=== PATIENT | female | born 1960 | race Caucasian/White ===

== ENCOUNTER 2023-03-30 15:07 | Inpatient (IN) | payer MEDICARE, OTHER ==
[~2023-03-30] VITALS: Ht 162.6 cm; Wt 89.5 kg
--- NOTE | 2023-03-30 18:41 | NUR ---
MD AWARE OF PT VITALS.
[2023-03-30] MEDS ORDERED: normal saline 1000ml 1,000 ML IV ONE (18:55)
[2023-03-30] MEDS ORDERED: normal saline 1000ML IV soln IVB ONE (18:55)
[2023-03-30] MEDS ORDERED: nitroGLYCERIN 0.4mg/hour patch TD ONE (18:55)
[2023-03-30] MEDS ORDERED: aspirin 81mg tab.chew PO ONE (18:55)
[2023-03-30] MEDS ORDERED: LORazepam 2 mg/ml vial IV ONE (18:55)
[2023-03-30 19:01] LABS: BASOPHILS # (AUTO) 0.1 X10'3 (0-0.2); BASOPHILS % (AUTO) 1.1 % (0-1); EOSINOPHILS % (AUTO) 0.1 % (0-6); HEMATOCRIT 45.4 % (35.0-45.0); HEMOGLOBIN 15.6 g/dl (12.0-16.0); LYMPHOCYTES # (AUTO) 1.3 X10'3 (1.1-4.8); MEAN CORPUSCULAR HGB CONC 34.4 g/dL (33.0-36.5); MEAN CORPUSCULAR VOLUME 95.8 FL (78-98); MEAN PLATELET VOLUME 7.5 FL (7.4-10.4); MONOCYTES # (AUTO) 0.6 X10'3 (0-0.9); MONOCYTES % (AUTO) 5.1 % (2-12); NEUTROPHILS % (AUTO) 82.7 % (42-75); PLATELET COUNT 236 X10'3 (140-440); RED BLOOD COUNT 4.74 X10'6 (4.20-5.60); RED CELL DISTRIBUTION WIDTH 13.5 % (11.5-14.5); WHITE BLOOD COUNT 12.1 X10'3 (4.5-11.0)
[2023-03-30 19:12] LABS: APTT 26 SECONDS (22-32); INR 1.1 INR; PROTHROMBIN TIME 11.3 SECONDS (9.0-12.0)
[2023-03-30 19:14] LABS: BILIRUBIN,URINE NEGATIVE (Neg); CLARITY,URINE CLEAR (Clear); COLOR,URINE YELLOW (Yellow); GLUCOSE, URINE NEGATIVE (Neg); KETONES,URINE NEGATIVE (Neg); LEUKOCYTE ESTERASE ,URINE NEGATIVE (Neg); NITRITES, URINE NEGATIVE (Neg); OCCULT BLOOD,URINE MODERATE (Neg); PH,URINE 7.5 (4.8-8.0); PROTEIN,URINE 30 mg/dl (Neg); UROBILINOGEN,URINE 0.2 E.U/dL (0.2-1.0)
[2023-03-30 19:19] LABS: UA COLLECTION TYPE CLN CATCH MIDSTREAM
[2023-03-30 19:21] LABS: GLUCOSE 143 MG/DL (70-104); SODIUM 138 MMOL/L (135-145)
[2023-03-30 19:22] LABS: ALANINE AMINOTRANSFERASE 147 U/L (12-78); ALBUMIN 4.4 G/DL (3.4-5.0); ALKALINE PHOSPHATASE 107 IU/L (46-116); ANION GAP 14 (8-16); ASPARTATE AMINO TRANSFERASE 182 U/L (10-37); BILIRUBIN,TOTAL 1.2 MG/DL (0.1-1.0); BLOOD UREA NITROGEN 9 MG/DL (7-18); CHLORIDE 98 MMOL/L (99-107); CREATININE 0.82 MG/DL (0.40-0.90); MAGNESIUM 1.6 MG/DL (1.5-2.4); PRO BRAIN NATRIURETIC PEPTIDE 756 PG/ML (0-125); TOTAL CARBON DIOXIDE 25.8 MMOL/L (24-32); TOTAL PROTEIN 8.7 G/DL (6.4-8.2); eCRCL 63 ML/MIN; eGFR 71 ML/MIN
[2023-03-30 19:25] LABS: BACTERIA,URINE FEW /HPF (Neg); MUCUS STRANDS NONE SEEN /LPF (Neg); SQUAMOUS EPITHELIAL CELL,UR FEW /LPF (FEW); WBC,URINE 0-4 /HPF (0-4)
[2023-03-30 19:26] LABS: TRANSITIONAL EPI CELLS,URINE FEW /HPF
[2023-03-30 19:33] LABS: CALCIUM 9.9 MG/DL (8.5-10.1)
[2023-03-30 19:52] LABS: POTASSIUM 2.7 MMOL/L (3.5-5.1)
[2023-03-30] MEDS ORDERED: heparin 10,000 units/1 ML INJ IV ONE (20:00)
[2023-03-30] MEDS ORDERED: heparin 25,000 UNIT/250ml bag 250 ML IV PRN (20:00)
[2023-03-30] MEDS ORDERED: potassium Cl 20 mEq SR tablet PO ONE (20:00)
[2023-03-30] MEDS ORDERED: magnesium 2GM in 50ml NS 50 ML IV ONE (20:00)
[2023-03-30 20:03] LABS: C-REACTIVE PROTEIN 1.97 MG/DL (0.0-0.5); THYROID STIMULATING HORMONE 0.63 ulU/ml (0.34-4.50)
[2023-03-30] MEDS ORDERED: potassium Cl 40 mEq/0.45% sodium chloride IV soln 520ml IV ONE (20:05)
[2023-03-30 20:09] LABS: ETHANOL < 10 MG/DL (<10)
[2023-03-30] MEDS ORDERED: Potassium Cl 40 MEQ in sodium chloride 0.45% 500 ML IV ONE (20:10)
[2023-03-30 20:20] LABS: BILIRUBIN,URINE NEGATIVE (Neg); COLOR,URINE YELLOW (Yellow); GLUCOSE, URINE NEGATIVE (Neg); KETONES,URINE 40 mg/dl (Neg); LEUKOCYTE ESTERASE ,URINE NEGATIVE (Neg); NITRITES, URINE NEGATIVE (Neg); OCCULT BLOOD,URINE MODERATE (Neg); PH,URINE 7.5 (4.8-8.0); PROTEIN,URINE >=300 mg/dl (Neg); UROBILINOGEN,URINE 0.2 E.U/dL (0.2-1.0)
[2023-03-30 20:26] LABS: CLARITY,URINE SLIGHTLY CLOUDY (Clear); UA COLLECTION TYPE CLN CATCH MIDSTREAM
[2023-03-30 20:36] LABS: BACTERIA,URINE FEW /HPF (Neg); RBC,URINE 20-50 /HPF (0-2); WBC,URINE 0-4 /HPF (0-4)
[2023-03-30 20:37] LABS: SQUAMOUS EPITHELIAL CELL,UR FEW /LPF (FEW)
[2023-03-30 20:38] LABS: FINE GRANULAR CAST 0-3 /LPF (NEGATIVE); TRANSITIONAL EPI CELLS,URINE FEW /HPF; URINE AMPHETAMINE SCREEN NEGATIVE (Neg); URINE BARBITUATE SCREEN NEGATIVE (Neg); URINE BENZODIAZEPINES SCREEN NEGATIVE (Neg); URINE CANNABINOID SCREEN NEGATIVE (Neg); URINE COCAINE SCREEN NEGATIVE (Neg); URINE METHADONE SCREEN NEGATIVE (Neg); URINE OPIATE SCREEN NEGATIVE (Neg); URINE PHENCYCLIDINE SCREEN NEGATIVE (Neg)
[2023-03-30] MEDS ORDERED: magnesium 2GM in 50ml NS 50 ML IV PRN (20:50)
[2023-03-30] MEDS ORDERED: ondansetron/PF 4mg/2ml inj IV PRN (20:50)
[2023-03-30] MEDS ORDERED: magnesium 4gm in 100ml NS 100 ML IV PRN (20:50)
[2023-03-30] MEDS ORDERED: PERFLUTREN PROTEIN-A MICROSPHR (Optison) 0.22 MG/ML 3ML VIAL IV PRN (20:50)
[2023-03-30] MEDS ORDERED: magnesium Cl slow-release 64mg tablet PO PRN (20:50)
[2023-03-30] MEDS ORDERED: acetaminophen 325mg tablet PO PRN (20:50)
[2023-03-30] MEDS ORDERED: potassium Cl 20 mEq SR tablet PO PRN ×2 (20:50)
[2023-03-30] MEDS: metoprolol tartrate 1mg/ml inj IV SCH ×3 (20:51→21:44)
[2023-03-30] MEDS ORDERED: LORazepam 2 mg/ml vial IV STA (20:55)
[2023-03-30] MEDS ORDERED: LORazepam 2 mg/ml vial IV PRN (20:55)
[2023-03-30] MEDS ORDERED: heparin 10,000 units/1 ML INJ IV PRN (21:45)
[2023-03-30] MEDS: buprenorphine/naloxone 8MG-2MG SUBlingual film SL SCH (22:02)
[2023-03-30 22:58] LABS: ABG BASE EXCESS 1.6 mmol/L (-2.0-2.0); ABG HCO3 21.7 mmol/L (22.0-26.0); ABG OXYGEN SATURATION 97.6 % (94-97); ABG PCO2 (T) 24.5 mmHg (32.0-45.0); ABG PH (T) 7.566 (7.350-7.450); ABG PO2 (T) 87.8 mmHg (75.0-100.0); FCOHb 0.3 % (0.0-3.9); FHHb 2.4 % (0.0-5.0); FMetHb 0.2 % (0.0-1.5); FO2Hb 97.1 % (94-97); PATIENT TEMPERATURE 37.3; TOTAL HEMOGLOBIN 15.3 G/dl (12.0-16.0)
[2023-03-30] MEDS ORDERED: thiamine 100mg/ml 2ml inj. IV ONE (23:20)
[2023-03-30] MEDS: LORazepam 2 mg/ml vial IV SCH (23:55)
[2023-03-30] MEDS ORDERED: folic acid 1mg/0.2ml inj IV ONE (23:55)
[2023-03-31] VITALS (23 sets, daily range): BP systolic 68–148; BP diastolic 42–120; PULSE 53–76; RESP 14–21; O2SAT 95–100
--- NOTE | 2023-03-31 00:25 | NUR ---
Pt to floor.
[2023-03-31] MEDS: dexmedetomidine inj. 400 MCG in normal saline 100ml IV soln 96 ML IV SCH ×2 (00:40→07:41)
[2023-03-31] MEDS: normal saline 1000ml 1,000 ML IV SCH ×2 (00:40→14:11)
[2023-03-31] MEDS: potassium Cl 40MEQ/1/2NS 520ml 520 ML IV PRN (00:51)
[2023-03-31] MEDS: LORazepam 2 mg/ml vial IV SCH (00:55)
[2023-03-31] MEDS ORDERED: LORazepam 2 mg/ml vial IV PRN (01:00)
--- NOTE | 2023-03-31 01:03 | NUR ---
Dr. Malhotra notified of low BP. I took off her NTG patch. He ordered 1L NS bolus and said after that start peripheral Norepi if needed.
[2023-03-31] MEDS ORDERED: normal saline 1000ml 1,000 ML IV ONE (01:05)
[2023-03-31 02:12] LABS: BASOPHILS % (AUTO) 0.2 % (0-1); EOSINOPHILS % (AUTO) 0 % (0-6); HEMATOCRIT 36.6 % (35.0-45.0); HEMOGLOBIN 12.4 g/dl (12.0-16.0); LYMPHOCYTES # (AUTO) 1.2 X10'3 (1.1-4.8); LYMPHOCYTES % (AUTO) 9.2 % (21-51); MEAN CORPUSCULAR HEMOGLOBIN 32.4 PG (27.0-31.0); MEAN CORPUSCULAR HGB CONC 33.7 g/dL (33.0-36.5); MEAN CORPUSCULAR VOLUME 96.1 FL (78-98); MEAN PLATELET VOLUME 7.9 FL (7.4-10.4); MONOCYTES # (AUTO) 0.8 X10'3 (0-0.9); MONOCYTES % (AUTO) 5.9 % (2-12); NEUTROPHILS # (AUTO) 10.9 X10'3 (1.8-7.7); NEUTROPHILS % (AUTO) 84.7 % (42-75); PLATELET COUNT 196 X10'3 (140-440); RED BLOOD COUNT 3.81 X10'6 (4.20-5.60); RED CELL DISTRIBUTION WIDTH 13.4 % (11.5-14.5); WHITE BLOOD COUNT 12.9 X10'3 (4.5-11.0)
[2023-03-31 02:18] LABS: APTT 59 SECONDS (22-32)
[2023-03-31 02:19] LABS: ALANINE AMINOTRANSFERASE 115 U/L (12-78); ALBUMIN 2.9 G/DL (3.4-5.0); ALBUMIN/GLOBULIN RATIO 0.9 (1.1-1.5); ALKALINE PHOSPHATASE 71 IU/L (46-116); ANION GAP 6 (8-16); ASPARTATE AMINO TRANSFERASE 144 U/L (10-37); BILIRUBIN,TOTAL 0.8 MG/DL (0.1-1.0); BLOOD UREA NITROGEN 8 MG/DL (7-18); BUN/CREATININE RATIO 9.2 (10.0-20.0); CALCIUM 7.7 MG/DL (8.5-10.1); CHLORIDE 105 MMOL/L (99-107); CREATININE 0.87 MG/DL (0.40-0.90); GLUCOSE 165 MG/DL (70-104); MAGNESIUM 1.9 MG/DL (1.5-2.4); POTASSIUM 3.3 MMOL/L (3.5-5.1); SODIUM 140 MMOL/L (135-145); TOTAL CARBON DIOXIDE 29.5 MMOL/L (24-32); TOTAL PROTEIN 6.2 G/DL (6.4-8.2); eCRCL 59 ML/MIN; eGFR 66 ML/MIN
[2023-03-31] MEDS ORDERED: NORepinephrine 8mg/ 250ml NS 250 ML IV SCH (02:20)
[2023-03-31] MEDS: folic acid 1mg/0.2ml inj IV SCH (07:35)
[2023-03-31] MEDS: pantoprazole 40MG/NS 100ML BAG 100 ML IV SCH (07:36)
[2023-03-31] MEDS: thiamine 100mg/ml 2ml inj. IV SCH (07:38)
[2023-03-31] MEDS ORDERED: buprenorphine/naloxone 8MG-2MG SUBlingual film SL SCH (08:00)
[2023-03-31] MEDS: K and/or MAG REPLACEMENT MC SCH ×2 (08:00→20:00)
[2023-03-31] MEDS: buprenorphine/naloxone 8MG-2MG SUBlingual film SL SCH ×2 (08:00→19:49)
[2023-03-31] MEDS: multivitamins, therapeutics tablet PO SCH (09:04)
[2023-03-31] MEDS: chlordiazePOXIDE 25mg capsule PO SCH ×2 (11:32→19:49)
[2023-03-31] MEDS ORDERED: heparin 1,000unit/ml 10ml vial 10 ML ONE ×2 (16:01→17:25)
[2023-03-31] MEDS ORDERED: fentaNYL/PF 50MCG/1 ML 2ML syringe ONE (16:02)
[2023-03-31] MEDS ORDERED: midazolam 1 mg/ML 2ml injection ONE (16:02)
[2023-03-31] MEDS ORDERED: IBUP-1986 PO (16:40)
[2023-03-31] MEDS ORDERED: BUPR-317 PO (16:40)
[2023-03-31] MEDS ORDERED: BUPR1FIL3 SL (16:40)
[2023-03-31] MEDS ORDERED: DULO40CA2 PO (16:40)
[2023-03-31] MEDS ORDERED: MULT-1141 PO (16:40)
--- NOTE | 2023-03-31 17:00 | NUR ---
Patient taken to Network Intelligence Analyst for procedure
[2023-03-31] MEDS ORDERED: verapamil 2.5 mg/ml inj IV ONE (17:17)
[2023-03-31] MEDS ORDERED: LIDOcaine 1% 30ml preserv. free vial ONE (17:17)
[2023-03-31] MEDS ORDERED: iohexol 350MG/ML 100ml bottle IV ONE ×2 (17:17→17:21)
[2023-03-31] MEDS ORDERED: clopidogrel 300mg tablet ONE (17:33)
--- NOTE | 2023-03-31 17:35 | NUR ---
PATIENT TRANSFERRED TO PROFILE SHAPER OPERATOR Addendum: 03/31/23 at 1736 by Zelda Dobbins RN Amended: Links added.
[2023-03-31] MEDS ORDERED: proCHLORperazine 10 MG/2 ml inj IV PRN (18:15)
[2023-03-31] MEDS ORDERED: HYDROcodone/acetaminophen 5mg/325mg tablet PO PRN (18:15)
[2023-03-31] MEDS ORDERED: ondansetron/PF 4mg/2ml inj IV PRN (18:15)
[2023-03-31] MEDS ORDERED: furosemide 40mg/4ml inj IV ONE (18:20)
[2023-04-01] VITALS (19 sets, daily range): BP systolic 96–140; BP diastolic 64–96; PULSE 58–92; RESP 11–25; TEMP 97.7; O2SAT 94–100
[2023-04-01] MEDS: normal saline 1000ml 1,000 ML IV SCH (02:21)
[2023-04-01] MEDS: chlordiazePOXIDE 25mg capsule PO SCH ×3 (03:35→21:19)
[2023-04-01 06:02] LABS: BASOPHILS # (AUTO) 0.1 X10'3 (0-0.2); BASOPHILS % (AUTO) 0.7 % (0-1); EOSINOPHILS # (AUTO) 0.1 X10'3 (0-0.9); EOSINOPHILS % (AUTO) 1.4 % (0-6); MEAN CORPUSCULAR HEMOGLOBIN 33.2 PG (27.0-31.0); MEAN CORPUSCULAR HGB CONC 34.2 g/dL (33.0-36.5); MONOCYTES # (AUTO) 0.7 X10'3 (0-0.9); MONOCYTES % (AUTO) 8.4 % (2-12); NEUTROPHILS # (AUTO) 5.4 X10'3 (1.8-7.7); NEUTROPHILS % (AUTO) 65.5 % (42-75); PLATELET COUNT 179 X10'3 (140-440); RED BLOOD COUNT 3.92 X10'6 (4.20-5.60); WHITE BLOOD COUNT 8.2 X10'3 (4.5-11.0)
[2023-04-01 06:16] LABS: ALANINE AMINOTRANSFERASE 98 U/L (12-78); ALBUMIN 3.1 G/DL (3.4-5.0); ALBUMIN/GLOBULIN RATIO 0.9 (1.1-1.5); ALKALINE PHOSPHATASE 64 IU/L (46-116); ANION GAP 5 (8-16); ASPARTATE AMINO TRANSFERASE 91 U/L (10-37); BILIRUBIN,TOTAL 0.5 MG/DL (0.1-1.0); BLOOD UREA NITROGEN 12 MG/DL (7-18); BUN/CREATININE RATIO 12.6 (10.0-20.0); CALCIUM 8.8 MG/DL (8.5-10.1); CHLORIDE 108 MMOL/L (99-107); CREATININE 0.95 MG/DL (0.40-0.90); GLUCOSE 115 MG/DL (70-104); MAGNESIUM 2.2 MG/DL (1.5-2.4); SODIUM 141 MMOL/L (135-145); TOTAL CARBON DIOXIDE 28.3 MMOL/L (24-32); TOTAL PROTEIN 6.4 G/DL (6.4-8.2); eCRCL 54 ML/MIN; eGFR 60 ML/MIN
[2023-04-01] MEDS ORDERED: multivitamins, therapeutics tablet PO SCH (08:00)
[2023-04-01] MEDS ORDERED: furosemide 20MG tablet PO SCH (08:00)
[2023-04-01] MEDS: thiamine 100mg/ml 2ml inj. IV SCH (08:28)
[2023-04-01] MEDS: folic acid 1mg/0.2ml inj IV SCH (08:28)
[2023-04-01] MEDS: buprenorphine/naloxone 8MG-2MG SUBlingual film SL SCH ×2 (08:28→21:20)
[2023-04-01] MEDS: clopidogrel 75mg tablet PO SCH (08:28)
[2023-04-01] MEDS: multivitamins, therapeutics tablet PO SCH (08:28)
[2023-04-01] MEDS: buPROPion SR 150mg tablet PO SCH (08:28)
[2023-04-01] MEDS: potassium Cl 40MEQ/1/2NS 520ml 520 ML IV PRN (08:44)
[2023-04-01] MEDS: pantoprazole 40MG/NS 100ML BAG 100 ML IV SCH (08:44)
[2023-04-01] MEDS: K and/or MAG REPLACEMENT MC SCH ×2 (08:52→20:00)
[2023-04-01] MEDS: duloxetine 20mg capsule.DR PO SCH (10:44)
[2023-04-01] MEDS ORDERED: diphenhydrAMINE 50 mg/ml inj IV ONE (12:00)
[2023-04-01] MEDS ORDERED: hydrOXYzine 25 MG tablet PO PRN (12:00)
[2023-04-01] MEDS: atorvastatin 10mg tablet PO SCH (12:15)
[2023-04-01] MEDS: aspirin 81mg, enteric-coated 1 TAB TABLET.DR PO SCH (12:15)
[2023-04-01] MEDS: triamcinolone acet 0.1% cream 15gm TP SCH (12:22)
[2023-04-01] MEDS: metoprolol tartrate 25mg tablet PO SCH ×2 (15:12→21:20)
--- NOTE | 2023-04-01 19:00 | NUR ---
Patient in room PCU 3016. I have received report from [facility] and had the opportunity to ask questions and assume patient care.
--- NOTE | 2023-04-01 19:10 | NUR ---
Pt awake, alert, sitting up eating dinner; VSS, offers no complaints; pt transferred to PCU at 1905, room 3016B, in wheelchair after giving report to TONI Webb; belongings w/patient; pt settled in bed w/call light w/in reach.
[2023-04-01] MEDS: HYDROcodone/acetaminophen 10/325mg tab PO PRN (21:20)
[2023-04-02] VITALS (7 sets, daily range): BP systolic 87–110; BP diastolic 56–75; PULSE 50–60; RESP 10–18; TEMP 97.6–97.9; O2SAT 93–98
--- NOTE | 2023-04-02 06:15 | NUR ---
Problems reprioritized. Patient report given, questions answered & plan of care reviewed with Mireille MUÑOZ.
[2023-04-02 06:44] LABS: BASOPHILS # (AUTO) 0.1 X10'3 (0-0.2); BASOPHILS % (AUTO) 0.6 % (0-1); EOSINOPHILS # (AUTO) 0.2 X10'3 (0-0.9); HEMATOCRIT 36.8 % (35.0-45.0); HEMOGLOBIN 12.3 g/dl (12.0-16.0); LYMPHOCYTES # (AUTO) 2.7 X10'3 (1.1-4.8); LYMPHOCYTES % (AUTO) 28.8 % (21-51); MEAN CORPUSCULAR HEMOGLOBIN 32.9 PG (27.0-31.0); MEAN CORPUSCULAR HGB CONC 33.3 g/dL (33.0-36.5); MEAN CORPUSCULAR VOLUME 98.8 FL (78-98); MEAN PLATELET VOLUME 8.1 FL (7.4-10.4); MONOCYTES # (AUTO) 0.9 X10'3 (0-0.9); MONOCYTES % (AUTO) 9.8 % (2-12); NEUTROPHILS # (AUTO) 5.5 X10'3 (1.8-7.7); NEUTROPHILS % (AUTO) 58.8 % (42-75); PLATELET COUNT 204 X10'3 (140-440); RED BLOOD COUNT 3.72 X10'6 (4.20-5.60); RED CELL DISTRIBUTION WIDTH 14.2 % (11.5-14.5); WHITE BLOOD COUNT 9.4 X10'3 (4.5-11.0)
[2023-04-02] MEDS: aspirin 81mg, enteric-coated 1 TAB TABLET.DR PO SCH (07:00)
[2023-04-02] MEDS: multivitamins, therapeutics tablet PO SCH (07:00)
[2023-04-02] MEDS: chlordiazePOXIDE 25mg capsule PO SCH ×2 (07:00→21:02)
[2023-04-02] MEDS: clopidogrel 75mg tablet PO SCH (07:00)
[2023-04-02] MEDS: duloxetine 20mg capsule.DR PO SCH (07:00)
[2023-04-02] MEDS: thiamine 100mg/ml 2ml inj. IV SCH (07:00)
[2023-04-02] MEDS: atorvastatin 10mg tablet PO SCH (07:00)
[2023-04-02] MEDS: HYDROcodone/acetaminophen 10/325mg tab PO PRN ×3 (07:00→19:34)
[2023-04-02] MEDS: buprenorphine/naloxone 8MG-2MG SUBlingual film SL SCH ×2 (07:01→21:02)
[2023-04-02] MEDS: buPROPion SR 150mg tablet PO SCH (07:01)
[2023-04-02 07:13] LABS: ALANINE AMINOTRANSFERASE 79 U/L (12-78); ALBUMIN 3.2 G/DL (3.4-5.0); ALKALINE PHOSPHATASE 63 IU/L (46-116); ANION GAP 8 (8-16); ASPARTATE AMINO TRANSFERASE 63 U/L (10-37); BILIRUBIN,TOTAL 0.5 MG/DL (0.1-1.0); BLOOD UREA NITROGEN 22 MG/DL (7-18); BUN/CREATININE RATIO 18.2 (10.0-20.0); CALCIUM 8.7 MG/DL (8.5-10.1); CHLORIDE 106 MMOL/L (99-107); CREATININE 1.21 MG/DL (0.40-0.90); GLUCOSE 94 MG/DL (70-104); POTASSIUM 3.9 MMOL/L (3.5-5.1); SODIUM 138 MMOL/L (135-145); TOTAL CARBON DIOXIDE 23.7 MMOL/L (24-32); TOTAL PROTEIN 6.4 G/DL (6.4-8.2); eCRCL 43 ML/MIN; eGFR 45 ML/MIN
[2023-04-02] MEDS: metoprolol tartrate 25mg tablet PO SCH ×3 (08:00→20:00)
[2023-04-02] MEDS: triamcinolone acet 0.1% cream 15gm TP SCH ×2 (08:00→20:00)
[2023-04-02] MEDS: K and/or MAG REPLACEMENT MC SCH ×2 (08:00→20:00)
[2023-04-02] MEDS: folic acid 1mg/0.2ml inj IV SCH (09:17)
[2023-04-02] MEDS: pantoprazole 40MG/NS 100ML BAG 100 ML IV SCH (09:18)
--- NOTE | 2023-04-02 12:33 | NUR ---
sent to [facility]: [id number]: pt everyday smoker. order for nicotine patch please? thank you. Mireille MUÑOZ [id number]
[2023-04-02] MEDS: nicotine 14mg patch - 24hr TD SCH (13:51)
[2023-04-02] MEDS: LIDOcaine 5% patch TP SCH (13:51)
[2023-04-03 02:00] VITALS: BP 83/53; PULSE 59; RESP 19; TEMP 97.8; O2SAT 100
[2023-04-03] MEDS: metoprolol tartrate 25mg tablet PO SCH ×3 (02:00→14:00)
[2023-04-03] MEDS: HYDROcodone/acetaminophen 10/325mg tab PO PRN ×2 (02:06→13:48)
[2023-04-03 06:00] VITALS: BP 95/61; PULSE 55; RESP 16; TEMP 97.8; O2SAT 96
--- NOTE | 2023-04-03 07:05 | NUR ---
This RN has has reviewed and agrees w/the BLADE BENDER FURNACE TENDER's physical assessment of this patient.
[2023-04-03 07:15] LABS: BASOPHILS # (AUTO) 0.1 X10'3 (0-0.2); BASOPHILS % (AUTO) 0.7 % (0-1); EOSINOPHILS # (AUTO) 0.2 X10'3 (0-0.9); HEMATOCRIT 34.6 % (35.0-45.0); HEMOGLOBIN 11.8 g/dl (12.0-16.0); LYMPHOCYTES # (AUTO) 1.8 X10'3 (1.1-4.8); MEAN CORPUSCULAR HEMOGLOBIN 33.6 PG (27.0-31.0); MEAN PLATELET VOLUME 8.3 FL (7.4-10.4); MONOCYTES # (AUTO) 0.7 X10'3 (0-0.9); MONOCYTES % (AUTO) 9.3 % (2-12); NEUTROPHILS # (AUTO) 4.7 X10'3 (1.8-7.7); PLATELET COUNT 177 X10'3 (140-440); RED CELL DISTRIBUTION WIDTH 14.3 % (11.5-14.5); WHITE BLOOD COUNT 7.5 X10'3 (4.5-11.0)
[2023-04-03] MEDS ORDERED: pantoprazole 40mg Tablet.DR PO SCH (07:30)
[2023-04-03 07:39] LABS: ALANINE AMINOTRANSFERASE 76 U/L (12-78); ALBUMIN 3.1 G/DL (3.4-5.0); ALKALINE PHOSPHATASE 63 IU/L (46-116); ANION GAP 8 (8-16); ASPARTATE AMINO TRANSFERASE 61 U/L (10-37); BILIRUBIN,TOTAL 0.5 MG/DL (0.1-1.0); BLOOD UREA NITROGEN 28 MG/DL (7-18); BUN/CREATININE RATIO 19.2 (10.0-20.0); CALCIUM 8.4 MG/DL (8.5-10.1); CHLORIDE 105 MMOL/L (99-107); CREATININE 1.46 MG/DL (0.40-0.90); GLUCOSE 105 MG/DL (70-104); MAGNESIUM 2.1 MG/DL (1.5-2.4); POTASSIUM 4.1 MMOL/L (3.5-5.1); SODIUM 139 MMOL/L (135-145); TOTAL CARBON DIOXIDE 26.5 MMOL/L (24-32); TOTAL PROTEIN 6.2 G/DL (6.4-8.2); eCRCL 35 ML/MIN; eGFR 37 ML/MIN
[2023-04-03 08:00] VITALS: RESP 16; O2SAT 98
[2023-04-03] MEDS: triamcinolone acet 0.1% cream 15gm TP SCH (08:00)
[2023-04-03] MEDS: K and/or MAG REPLACEMENT MC SCH (08:15)
[2023-04-03] MEDS: buPROPion SR 150mg tablet PO SCH (09:41)
[2023-04-03] MEDS: atorvastatin 10mg tablet PO SCH (09:42)
[2023-04-03] MEDS: clopidogrel 75mg tablet PO SCH (09:42)
[2023-04-03] MEDS: aspirin 81mg, enteric-coated 1 TAB TABLET.DR PO SCH (09:43)
[2023-04-03] MEDS: chlordiazePOXIDE 25mg capsule PO SCH (09:44)
[2023-04-03] MEDS: multivitamins, therapeutics tablet PO SCH (09:44)
[2023-04-03] MEDS: duloxetine 20mg capsule.DR PO SCH (09:45)
[2023-04-03] MEDS: nicotine 14mg patch - 24hr TD SCH (09:46)
[2023-04-03] MEDS: buprenorphine/naloxone 8MG-2MG SUBlingual film SL SCH (09:46)
[2023-04-03] MEDS: LIDOcaine 5% patch TP SCH (09:53)
[2023-04-03 11:00] VITALS: BP 86/53; PULSE 58; RESP 16; TEMP 98.3; O2SAT 98
[2023-04-03] MEDS ORDERED: NICO-631 TD (12:35)
[2023-04-03] MEDS ORDERED: METO50TA16 PO (12:35)
[2023-04-03] MEDS ORDERED: CLOP75TA34 PO (12:35)
[2023-04-03] MEDS ORDERED: ATOR10TA PO (12:35)
[2023-04-03] MEDS ORDERED: ASPI-1071 PO (12:35)
--- NOTE | 2023-04-03 14:26 | NUR ---
PAGER ID: [phone] MESSAGE: Pt in [id number] [place] is wanting to go home. I was wondering if you were able to get in touch with Dr. Gutierrez and if he approved of discharge? Pt in NAD. TONI Garcia [id number]
[2023-04-03 15:00] VITALS: BP 105/61; PULSE 58; RESP 16; TEMP 98.1; O2SAT 95
--- NOTE | 2023-04-03 15:38 | NUR ---
spoke with dr acosta about discharge clearance. dr acosta cleared patient for discharge and stated that patient will follow up with Giles Gutierrez in one week.
--- NOTE | 2023-04-03 16:45 | NUR ---
Pt AOX4, VSS on RA. Pt's PIV removed with cannula intact. Pt denies pain. Discharge paperwork reviewed with patient and family at bedside questions answered. Pt in NAD. Pt's medications called to preferred pharmacy.
== END 2023-04-03 16:30 | disposition home or self-care (01) | DRG 322 ==
LOC: ER 15:08 → ED HOLD 20:52 → EDBEDREQ 23:53 → EDBEDREQTM 23:53 → CICU 2S 03-31 00:41 → PCU 3S 04-01 19:10
PROVIDERS: ADMIT Internal Medicine; ATTEND Family Medicine
PROC: 027034Z Dilation of Coronary Artery, One Artery with Drug-eluting Intraluminal Device, Percutaneous Approach (ICD-10-PCS; principal; 2023-03-31)
PROC: 4A023N7 Measurement of Cardiac Sampling and Pressure, Left Heart, Percutaneous Approach (ICD-10-PCS; 2023-03-31)
PROC: B2111ZZ Fluoroscopy of Multiple Coronary Arteries using Low Osmolar Contrast (ICD-10-PCS; 2023-03-31)
PROC: B2151ZZ Fluoroscopy of Left Heart using Low Osmolar Contrast (ICD-10-PCS; 2023-03-31)
DX: I21.4 Non-ST elevation (NSTEMI) myocardial infarction (principal); F10.131 Alcohol abuse with withdrawal delirium; F11.23 Opioid dependence with withdrawal; E83.42 Hypomagnesemia; Z20.822 Contact with and (suspected) exposure to COVID-19; E87.6 Hypokalemia; R74.01 Elevation of levels of liver transaminase levels; I10 Essential (primary) hypertension; F32.A Depression, unspecified; F17.210 Nicotine dependence, cigarettes, uncomplicated; I25.10 Atherosclerotic heart disease of native coronary artery without angina pectoris; E66.01 Morbid (severe) obesity due to excess calories; Z68.33 Body mass index [BMI] 33.0-33.9, adult; Z88.8 Allergy status to other drugs, medicaments and biological substances; Z88.6 Allergy status to analgesic agent
CPT/HCPCS: 93306; 93458; 99285; C9600; 36415; 36600; 71045; 80053; 80305; 80320; 81001; 82140; 82803; 83735; 83880; 84132; 84145; 84443; 84484; 85018; 85025; 85610; 85651; 85730; 86140; 87081; 87811; 93005; 97161; 97530; 99152; 99153; A4353; A4615; A6213; A6258; A6449; C1725; C1751; C1769; C1874; C1894; C9113; G0378; J1200; J1644; J2060; J2250; J3010; J3411; J3475; J3480; J3490; J7030; Q0177; Q9967